=== PATIENT | female | born 1970 | race American Indian/Alaskan Native ===

== ENCOUNTER 2017-11-16 09:36 | Emergency (ER) | payer MEDICARE ==
[2017-11-16] MEDS ORDERED: MORPHINE IM ONE (10:58)
--- NOTE | 2017-11-16 11:01 | Emergency Department Report ---
Chief Complaint: Extremity Injury, Upper Stated Complaint: RIGHT LEG/RIGHT SHOULDER INJURY Time Seen by Provider: 11/16/17 10:56 - HPI History of Present Illness: 49-year-old female presents to the emergency department via EMS from home with complaint of a headache, neck pain, left shoulder pain after she fell down 5 stairs on , 4 days ago. She says that her leg gave out secondary to her sciatica and she took a tumble. She is unsure whether she had any loss of consciousness per family helps get her up into bed. She had some pain medication at home that she's been using but since that ran out she says she has been having excruciating pain. She presents with elevated blood pressure as well despite not having a diagnosis of hypertension. She has a new primary care physician through Medicare but has not seen them regarding her symptoms. - ROS Review of Systems: Positive for headache, neck pain, left shoulder pain, left arm pain Negative for numbness, paresthesias, fever, vision change - Exam Vital Signs: Vital Signs 11/16/17 09:49 Temperature 99.2 F Pulse Rate 101 H Respiratory 18 Rate Blood Pressure 198/97 O2 Sat by Pulse 98 Oximetry Physical Exam: The patient is tearful. Pupils equal reactive to light bilaterally. No nystagmus. Extraocular motion intact. Tenderness to palpation to the left shoulder and upper left humerus. There is some tenderness to the midline and paraspinal neck no step-off or deformity. MSE screening note: Focused history and physical exam performed. Due to findings the following was ordered: Patient will have a CT scan of the head and cervical spine without contrast. An x-ray of the left shoulder and left humerus. She will have a CBC, CMP and CK level. ED Disposition for MSE Condition: Stable Referrals: CLAUDINE VERDIN MD [Primary Care Provider] - 3-5 Days
--- NOTE | 2017-11-16 11:52 | Cat Scan Report ---
CT HEAD WITHOUT CONTRAST INDICATION: Trauma. COMPARISON: None similar. FINDINGS: Noncontrast head CT demonstrates normal ventricles and sulci. No acute infarct, hemorrhage, mass effect or midline shift. No abnormal extra axial fluid collections. Minimal, benign bilateral basal ganglia calcifications. Normal posterior fossa with preserved basilar cisterns. Unremarkable eye globes. Small air-fluid levels seen within both maxillary sinuses, left more than right. Hypoplastic frontal sinuses, right more than left. Grossly clear remainder aerated paranasal sinuses and mastoid air cells. Slight atherosclerotic ICA calcifications. Intact calvarium. Normal scalp. Edentulous area. Cervical spondylosis. CONCLUSION: No acute intracranial CT abnormality with bilateral maxillary acute sinusitis, as described. Please correlate. Thank you for the opportunity to participate in this patient's care.
--- NOTE | 2017-11-16 12:05 | Cat Scan Report ---
CT CERVICAL SPINE WITHOUT CONTRAST INDICATION: Trauma. COMPARISON: None similar. FINDINGS: Noncontrast axial, sagittal and coronal CT reconstructions through the cervical spine demonstrate straightening/slight reversal of usual lordosis with the apex at C5-C6 with moderate to severe disc narrowing and mild spurring at this level as well. Mild to moderate C4-C5 disc narrowing also suspected. Preserved vertebral body stature. Normal dens and intact craniocervical articulation with preserved prevertebral soft tissues and the airway. Normal imaged intracranial appearance. Clear mastoid air cells. Intact anterior and posterior arches of C1. Normal size thyroid with a 0.5 cm hypodensity on the right, axial image 53, series 2. Clear visualized lung apices. On the obtained axial images: C2-C3 and C3-C4 are unremarkable. C4-C5 suggests slight diffuse disc bulge and right uncovertebral spurring. C5 vertebral body demonstrates a nondisplaced fracture through the left lamina and pedicle as on axial image 79, series 3, also involving the facet joint as on sagittal image 56. C5-C6 demonstrates left more than right uncovertebral spurring and mild disc bulge/osteophyte complex as on axial image 42, series 2, amongst others. C6-C7 and C7-T1 suggests no significant neural foraminal stenosis, though assessment of the spinal canal itself compromised due to artifact from shoulder soft tissues. CONCLUSION: Acute fracture involving C5 left lamina, pedicle and facet with cervical spondylosis also greatest at C5-C6, as detailed above. I phoned the above results to Dr. Melendez in the ER, 11:55 AM, 11/16/2017. Thank you for the opportunity to participate in this patient's care.
--- NOTE | 2017-11-16 12:07 | Emergency Department Report ---
HPI - General Chief Complaint: Extremity Injury, Upper Time Seen by Provider: 11/16/17 10:56 - HPI HPI: 47-year-old female presents to the emergency department via EMS from home with complaint of a headache, neck pain, left shoulder pain after she fell down 5 stairs on , 4 days ago. She says that her leg gave out secondary to her sciatica and she took a tumble. She is unsure whether she had any loss of consciousness per family helps get her up into bed. She had some pain medication at home and she says that has run out and therefore she is having increased pain that she says is a 10 out of 10 in intensity. She presents with elevated blood pressure as well despite not having a diagnosis of hypertension. She has a new primary care physician through Medicare but has not seen them regarding her symptoms. She has a history of a L3 to 5 microdiscectomy done in 2012, sciatica, depression and anxiety. ED Past Medical Hx - Past Medical History Previous Medical History?: Yes Hx Psychiatric Treatment: Yes (depression; anxiety) Additional medical history: sciatica - Surgical History Additional Surgical History: L3-5 surgery - Social History Smoking Status: Never Smoker Substance Use Type: None ED Review of Systems ROS: Stated complaint: RIGHT LEG/RIGHT SHOULDER INJURY Other details as noted in HPI Comment: All other systems reviewed and negative Constitutional: denies: chills, fever Eyes: denies: eye pain, eye discharge, vision change ENT: denies: ear pain, throat pain Respiratory: denies: cough, shortness of breath, wheezing Cardiovascular: denies: chest pain, palpitations Gastrointestinal: denies: abdominal pain, nausea, diarrhea Genitourinary: denies: urgency, dysuria, discharge Musculoskeletal: arthralgia, myalgia Skin: denies: rash, lesions Neurological: headache. denies: numbness Physical Exam - Physical Exam Vital Signs: Vital Signs 11/16/17 09:49 Temperature 99.2 F Pulse Rate 101 H Respiratory 18 Rate Blood Pressure 198/97 O2 Sat by Pulse 98 Oximetry Physical Exam: GENERAL: The patient is well-developed well-nourished. HENT: Normocephalic. Atraumatic. Patient has moist mucous membranes. EYES: Extraocular motions are intact. Pupils equal reactive to light bilaterally. NECK: Supple. Trachea is midline. Patient has lower midline and paraspinal tenderness to palpation. No step-off or deformity. CHEST/LUNGS: Clear to auscultation. There is no respiratory distress noted. HEART/CARDIOVASCULAR: Regular. There is no tachycardia. There is no murmur. ABDOMEN: Abdomen is soft, nontender. Patient has normal bowel sounds. There is no abdominal distention. SKIN: Skin is warm and dry. NEURO: The patient is awake, alert, and oriented. The patient is cooperative. The patient has no focal neurologic deficits. The patient has normal speech and gait. Cranial nerves II through XII grossly intact. MUSCULOSKELETAL: There is tenderness to palpation along the left shoulder and proximal humerus but no obvious deformity. There is some decreased range of motion of the left upper extremities secondary to pain. ED Course Vital Signs 11/16/17 09:49 Temperature 99.2 F Pulse Rate 101 H Respiratory 18 Rate Blood Pressure 198/97 O2 Sat by Pulse 98 Oximetry - Consultations Consultation #1: In regards to trauma facilities, the patient made a request for [facility] as she says it would be easier for her family to get to. I spoke to the trauma attending, Dr. Cam, who graciously accepted the patient as an ER to ER transfer. 11/16/17 12:29 Critical Care Time: No Critical care attestation.: If time is entered above; I have spent that time in minutes in the direct care of this critically ill patient, excluding procedure time. ED Disposition Clinical Impression: C5 vertebral fracture Qualifiers: Encounter type: initial encounter Fracture type: closed Fracture morphology: unspecified fracture morphology Fracture alignment: nondisplaced Qualified Code( s): S12.401A - Unspecified nondisplaced fracture of fifth cervical vertebra, initial encounter for closed fracture Left shoulder pain Qualifiers: Chronicity: acute Qualified Code(s): M25.512 - Pain in left shoulder Fall down stairs Qualifiers: Encounter type: initial encounter Qualified Code(s): W10.8XXA - Fall (on) (from ) other stairs and steps, initial encounter Hypertension Qualifiers: Hypertension type: essential hypertension Qualified Code(s): I10 - Essential ( primary) hypertension Disposition: DC/TX-70 ANOTHER TYPE HLTHCARE Is pt being admited?: No Condition: Fair Instructions: Hypertension (ED) Referrals: CLAUDINE VERDIN MD [Primary Care Provider] - 3-5 Days Time of Disposition: 12:31
[2017-11-16] MEDS ORDERED: PERCOCET 5/325 ONE (12:23)
[2017-11-16 12:38] VITALS: BP 206/106
--- NOTE | 2017-11-16 12:47 | XRay Report ---
LEFT SHOULDER RADIOGRAPHS INDICATION: Trauma. COMPARISON: None similar at this institution. FINDINGS: Frontal and Y views of the left shoulder, 3 projections demonstrate normal humeral head contour, well positioned against the glenoid. Normal acromioclavicular joint. Preserved scapular contour. Normal visualized soft tissues, left ribs and lung. Mild thoracic spondylosis. CONCLUSION: No acute left shoulder radiographic abnormality, as described. Thank you for the opportunity to participate in this patient's care.
--- NOTE | 2017-11-16 12:48 | XRay Report ---
LEFT HUMERUS RADIOGRAPHS INDICATION: Trauma. COMPARISON: None similar. FINDINGS: AP and lateral left humerus radiographs demonstrate intact bones, included joints and soft tissues. CONCLUSION: Normal left humerus radiographs. Thank you for the opportunity to participate in this patient's care.
[2017-11-16] MEDS ORDERED: ATIVAN ONE (13:20)
[2017-11-16] MEDS ORDERED: ATIVAN PO ONE (13:24)
[2017-11-16 13:25] LABS: Alanine Aminotransferase 24 units/L (7-56); Albumin 3.4 g/dL (3.9-5); BUN/Creatinine Ratio 8; Blood Urea Nitrogen 5 mg/dL (7-17); Hemolysis Index 23
== END 2017-11-16 13:35 | disposition other institution (70) ==
LOC: ED 09:36 → EDBD 09:36 → ED 13:35
DX: S12.401A Unspecified nondisplaced fracture of fifth cervical vertebra, initial encounter for closed fracture (principal); M25.512 Pain in left shoulder; I10 Essential (primary) hypertension; W10.9XXA Fall (on) (from) unspecified stairs and steps, initial encounter; Y93.89 Activity, other specified; Y92.89 Other specified places as the place of occurrence of the external cause; Y99.8 Other external cause status
CPT/HCPCS: 36415; 70450; 72125; 73030; 73060; 80053; 82550; 96372; 99285; J2270

== ENCOUNTER 2019-09-10 18:31 | Emergency (ER) | payer BC, MEDICARE ==
[2019-09-10 18:40] VITALS: BP 147/100
[2019-09-10] MEDS ORDERED: NITROGLYCERIN 0.4 MG TAB SUBL SL PRN (19:30)
--- NOTE | 2019-09-10 19:45 | XRay Report ---
CHEST 1 VIEW INDICATION / CLINICAL INFORMATION: MAIN: Chest Pain started today. COMPARISON: 11/26/2017 FINDINGS: SUPPORT DEVICES: None. HEART / MEDIASTINUM: No significant abnormality. LUNGS / PLEURA: No significant pulmonary or pleural abnormality. No pneumothorax. ADDITIONAL FINDINGS: No significant additional findings. IMPRESSION: 1. No significant change Signer Name: Niles Johnson MD Signed: 09/10/2019 7:40 PM Workstation Name: [id number]
[2019-09-10 19:52] LABS: Hematocrit 33.5 % (30.3-42.9); Hemoglobin 10.2 gm/dl (10.1-14.3); Mean Corpuscular HGB Conc 31 % (30-34); Platelet Count 345 K/mm3 (140-440); Red Blood Count 4.86 M/mm3 (3.65-5.03)
[2019-09-10 19:54] LABS: Mean Corpuscular Volume 69 fl (79-97); Red Cell Distribution Width 30.7 % (13.2-15.2)
[2019-09-10 20:04] LABS: INR 0.92 (0.87-1.13)
[2019-09-10 20:05] LABS: Partial Thromboplastin Time 26.2 Sec. (24.2-36.6)
[2019-09-10 20:13] LABS: Alanine Aminotransferase 32 units/L (7-56); BUN/Creatinine Ratio 14; Blood Urea Nitrogen 10 mg/dL (7-17); Calcium 9.3 mg/dL (8.4-10.2); Hemolysis Index 5
[2019-09-10 20:43] LABS: Anisocytosis 3+; Basophils % (Manual) 0 % (0.0-1.8); Total Cells Counted 100
[2019-09-10 20:44] LABS: Dimorphic RBC Yes; Hypochromasia 2+; Schistocytes 1+
[2019-09-10] MEDS ORDERED: CYCLOBENZAPRINE 10 MG TAB PO ONE (21:53)
[2019-09-10] MEDS ORDERED: ACETAMINOPHEN 325 MG TAB PO ONE (21:53)
[2019-09-10] MEDS ORDERED: predniSONE 20 MG TAB PO ONE (21:53)
--- NOTE | 2019-09-10 22:29 | Emergency Department Report ---
ED Chest Pain HPI - General Chief Complaint: Chest Pain Stated Complaint: CHEST PAIN Source: patient Mode of arrival: Wheelchair Limitations: No Limitations - History of Present Illness Initial Comments: Patient is a 49-year-old female with a history of chronic pain syndrome and on various narcotic pain medications at home, also history of anxiety and depression who presented to the ED with complaint of acute onset diffuse chest wall pain that radiates to the neck and bilateral shoulders and arms for the last 8 hours. Patient stated that she took Percocet 10 mg - 325 mg and gabapentin 600 mg prior to arrival in the ED. Patient states that the pain in her chest has not been controlled. Patient denies dizziness, syncope, nausea, vomiting, abdominal pain, headache, fever, chills, cough, sore throat, change in vision, palpitations, diaphoresis, traumatic injury, heavy lifting, fall or numbness and tingling or weakness of upper and lower extremities bilaterally. MD Complaint: chest pain, other (Dyspnea; neck and bilateral shoulder pain) -: Sudden, hour(s) (8) Onset: during rest, during exertion, awoke with symptoms Pain Location: left chest, right chest Pain Radiation: RUE, LUE, neck Severity: severe Severity scale (0 -10): 7 Quality: aching, sharp Consistency: constant Improves With: nothing Worsens With: exertion, palpation, movement Context: other (chronic back pain, on narcotic pain medications from Pain Clinic) re: dyspnea. denies: nausea, vomting, diaphoresis, sense of impending doom Other Symptoms: denies: cough, fever, syncope, rash, acid taste in mouth, leg swelling, palpitations, burping Treatments Prior to Arrival: other (Percocet 10-325 mg and Gabapentin 600mg) Aspirin use within the Past 7 Days: (0) No - Related Data On Oral Contraceptives: No Allergies Allergy/AdvReac Type Severity Reaction Status Date / Time ketorolac [From Toradol] AdvReac Itching Verified 04/09/18 09:41 tramadol AdvReac Itching Verified 04/18/18 11:27 Heart Score - HEART Score History: Slightly suspicious EKG: Normal Age: 45-65 Risk factors: 1-2 risk factors Troponin: < normal limit HEART Score: 2 - Critical Actions Critical Actions: 0-3 pts:0.9-1.7%risk of adverse cardiac event.Candidate for discharge ED Review of Systems ROS: Stated complaint: CHEST PAIN Other details as noted in HPI Constitutional: denies: chills, fever Eyes: denies: eye pain, eye discharge, vision change ENT: denies: ear pain, throat pain, dental pain, hearing loss, congestion Respiratory: shortness of breath. denies: cough, orthopnea, SOB with exertion, wheezing Cardiovascular: chest pain (diffuse). denies: palpitations, edema, syncope, paroxysmal nocturnal dyspnea Endocrine: no symptoms reported Gastrointestinal: denies: abdominal pain, nausea, vomiting, diarrhea, constipation, hematemesis, hematochezia Genitourinary: denies: urgency, dysuria, discharge Musculoskeletal: back pain, arthralgia (bilateral shoulder and lower back pain). denies: joint swelling Skin: denies: rash, lesions Neurological: denies: headache, weakness, numbness, paresthesias, confusion, vertigo Psychiatric: anxiety. denies: depression, auditory hallucinations, visual hallucinations, homicidal thoughts, suicidal thoughts Hematological/Lymphatic: denies: easy bleeding, easy bruising ED Past Medical Hx - Past Medical History Previous Medical History?: Yes Hx Psychiatric Treatment: Yes (depression; anxiety) Additional medical history: sciatica, anxiety, depression - Surgical History Past Surgical History?: Yes Hx Cholecystectomy: Yes Additional Surgical History: L3-5 surgery, left wrist surgery. Hernia surgery - Social History Smoking Status: Never Smoker Substance Use Type: None ED Physical Exam - General Limitations: No Limitations General appearance: alert, in no apparent distress - Head Head exam: Present: atraumatic, normocephalic, normal inspection - Eye Eye exam: Present: normal appearance, PERRL, EOMI Pupils: Present: normal accommodation - ENT ENT exam: Present: normal exam, normal orophraynx, mucous membranes moist, TM's normal bilaterally, normal external ear exam - Neck Neck exam: Present: normal inspection, tenderness (Palpable cervical paraspinal musculoskeletal tenderness), full ROM - Respiratory Respiratory exam: Present: normal lung sounds bilaterally, chest wall tenderness (Reproducible palpable diffuse chest wall tenderness). Absent: respiratory distress, wheezes, rales, rhonchi, accessory muscle use, decreased breath sounds, prolonged expiratory - Cardiovascular Cardiovascular Exam: Present: regular rate, normal rhythm, normal heart sounds. Absent: systolic murmur, diastolic murmur, rubs, gallop - GI/Abdominal GI/Abdominal exam: Present: soft, normal bowel sounds. Absent: tenderness, guarding, rebound, hyperactive bowel sounds - Extremities Exam Extremities exam: Present: normal inspection, full ROM, tenderness (Palpable bilateral shoulder tenderness), normal capillary refill - Back Exam Back exam: Present: normal inspection, full ROM, tenderness (Palpable lumbosacral paraspinal musculoskeletal tenderness), muscle spasm, paraspinal tenderness. Absent: CVA tenderness (L) - Neurological Exam Neurological exam: Present: alert, oriented X3, CN II-XII intact, normal gait, reflexes normal - Psychiatric Psychiatric exam: Present: normal affect, normal mood, anxious - Skin Skin exam: Present: warm, dry, intact, normal color. Absent: rash ED Course Vital Signs 09/10/19 18:36 Temperature 98.8 F Pulse Rate 100 H Respiratory 16 Rate Blood Pressure 147/100 O2 Sat by Pulse 99 Oximetry NADYA score - Nadya Score Age > 65: (0) No Aspirin use within the Past 7 Days: (0) No 3 or more CAD Risk Factors: (0) No 2 or more Angina events in past 24 hrs: (0) No Known CAD with more than 50% Stenosis: (0) No Elevated Cardiac Markers: (0) No ST Deviation Greater than 0.5mm: (0) No NADYA Score: 0 ED Medical Decision Making - Lab Data Result diagrams: 09/10/19 19:32 09/10/19 19:32 - EKG Data EKG shows normal: sinus rhythm Rate: normal - EKG Data Interpretation: normal EKG 09/10/19 22:31 EKG shows normal sinus rhythm with ventricular rate of 74 beats a minute and no ST or T wave abnormalities. - Radiology Data Radiology results: report reviewed, image reviewed Chest x-ray shows no acute cardiopulmonary abnormalities or pneumonitis - Medical Decision Making This is a 49-year-old female with a history of chronic pain syndrome and on various narcotic pain medications at home, also history of anxiety and depression who presented to the ED with complaint of acute onset diffuse chest wall pain that radiates to the neck and bilateral shoulders and arms for the last 8 hours. Patient stated that she took Percocet 10 mg - 325 mg and gabapentin 600 mg prior to arrival in the ED. Patient states that the pain in her chest has not been controlled. In the ED, patient is alert and oriented x3 and is not in any distress but appears to be in pain and very anxious. EKG shows normal sinus rhythm with ventricular rate of [address] or T wave abnormalities. Chest x-ray shows no acute cardiopulmonary abnormalities or pneumonitis. Lab test results were reviewed and are all nonactionable including the initial and repeat troponin levels. Patient was treated for pain in the ED but demanded narcotic medications for pain stating "These are the only medic ations that help my pain" yet she took same medications prior to arrival in the ED but still complained of pain. Patient however declined to take the pain medications and muscle relaxants offered in the ED stating that she wants narcotic medications. Patient however has Percocet 10 mg-325 mg and gabapentin at home which she takes and are prescribed at the pain clinic. Patient was discharged home and advised to take her regular pain medications since the current test results are remarkable for coronary artery disease. Based on the physical exam findings, EKG, chest x-ray and lab test results, the patient symptoms is musculoskeletal characterized by anxiety. Patient was advised to follow-up with her primary care physician in 2 to 3 days for reevaluation and also a pain clinic as previously scheduled. Patient was however advised return to the ED immediately if symptoms get worse. - Differential Diagnosis CAD; Muscle strain; Chronic pain; Costochondritis; anxiety Critical care attestation.: If time is entered above; I have spent that time in minutes in the direct care of this critically ill patient, excluding procedure time. ED Disposition Clinical Impression: Acute nonspecific chest pain with low risk of coronary artery disease, Acute costochondritis, Chronic pain syndrome, Anxiety as acute reaction to exceptional stress Disposition: DC-01 TO HOME OR SELFCARE Is pt being admited?: No Does the pt Need Aspirin: No Condition: Stable Instructions: Chest Pain (ED), Costochondritis (ED), Anxiety (ED) Additional Instructions: All lab test results, imaging test results and EKG are unremarkable. Your pain is mainly musculoskeletal and chronic. Therefore take pain medications that you are ready have at home and follow-up with your pain clinic since chronic pain is not treated in the ED. Follow-up with your primary care physician in 3 to 5 days for reevaluation. Referrals: [facility] [Provider Group] - 3-5 Days Time of Disposition: 22:41 Print Language: SETSWANA
== END 2019-09-10 22:45 | disposition home or self-care (01) ==
LOC: ED 18:31
DX: M94.0 Chondrocostal junction syndrome [Tietze] (principal); G89.4 Chronic pain syndrome; F43.8 Other reactions to severe stress; F32.89 Other specified depressive episodes; F41.1 Generalized anxiety disorder; F43.0 Acute stress reaction; Z90.49 Acquired absence of other specified parts of digestive tract; Z79.899 Other long term (current) drug therapy; Z88.6 Allergy status to analgesic agent
CPT/HCPCS: 36415; 71045; 80053; 84484; 85007; 85025; 85610; 85730; 93005; 93010; J7512

== ENCOUNTER 2019-12-09 05:22 | Emergency (ER) | payer BC, MEDICARE ==
[2019-12-09] MEDS ORDERED: oxyCODONE /ACETAMINOPHEN 5-325MG TAB PO ONE (06:58)
[2019-12-09] MEDS ORDERED: GABAPENTIN 400 MG CAP PO ONE ×2 (06:59→19:10)
[2019-12-09] MEDS ORDERED: LORazepam 1 MG TAB PO ONE ×2 (07:02→21:04)
--- NOTE | 2019-12-09 07:04 | Emergency Department Report ---
<NEELAM KOCH - Last Filed: 12/09/19 14:57> ED Psych HPI - General Chief Complaint: Medical Clearance Stated Complaint: MEDICAL CLEARANCE Time Seen by Provider: 12/09/19 06:50 Source: patient, EMS Mode of arrival: Ambulatory Limitations: No Limitations - History of Present Illness Initial Comments: 49-year-old female with a past medical history of anxiety, depression, chronic pain syndrome, and sciatica presents to the hospital complaining of pain all over and suicidal ideation. Patient states that her current Percocet 10 mg 4 times a day and gabapentin 800 mg 4 times a day are not controlling her pain. She is enrolled in pain management. She complains of exacerbation of her chronic pain. She complains of feeling suicidal but does not endorse a plan today. Last year she tried to kill herself by tying a cord around her neck. She has been off her psychiatric medications for the past 2 months. She denies a history of primary hypertension and states that her BP is elevated when she is in pain - Related Data Allergies Allergy/AdvReac Type Severity Reaction Status Date / Time ketorolac [From Toradol] AdvReac Itching Verified 04/09/18 09:41 tramadol AdvReac Itching Verified 04/18/18 11:27 ED Review of Systems Comment: All other systems reviewed and negative ED Past Medical Hx - Past Medical History Previous Medical History?: Yes Hx Psychiatric Treatment: Yes (depression; anxiety) Additional medical history: sciatica, anxiety, depression - Surgical History Hx Cholecystectomy: Yes Additional Surgical History: L3-5 surgery, left wrist surgery. Hernia surgery - Social History Smoking Status: Never Smoker Substance Use Type: None ED Physical Exam - General Limitations: No Limitations - Other Other exam information: General: No acute distress Head: Atraumatic Eyes: normal appearance ENT: Moist mucous membranes Neck: Normal appearance, no midline tenderness Chest: Clear to auscultation bilaterally CV: Regular rate and rhythm Abdomen: Soft, normal bowel sounds, nontender, nondistended, no rebound or guarding Back: Normal inspection Extremity: Normal inspection, full range of motion Neuro: Alert O x 3, no facial asymmetry, speech clear, no gross motor sensory deficit Psych: Patient rocking, complaining of feeling anxious, complaining of being in pain, complaining of not being able to breathe with the mask on her face Skin: No rash ED Medical Decision Making - Lab Data Result diagrams: 12/09/19 07:30 12/09/19 07:30 - Medical Decision Making pain improved with ED Disposition Clinical Impression: Suicidal ideation, Chronic pain Disposition: DC/TX-65 PSY HOSP/PSY UNIT Is pt being admited?: No Condition: Stable Referrals: PRIMARY CAREMD [Primary Care Provider] - 3-5 Days [facility] [Provider Group] - 3-5 Days Time of Disposition: 14:32 <IBMAL BAXTER - Last Filed: 12/09/19 23:32> ED Review of Systems ROS: Stated complaint: MEDICAL CLEARANCE Other details as noted in HPI ED Course Vital Signs 12/09/19 12/09/19 12/09/19 05:30 07:35 08:00 Temperature 98.2 F Pulse Rate 75 Respiratory 20 18 18 Rate Blood Pressure 179/127 Blood Pressure [Left] O2 Sat by Pulse 99 98 Oximetry 12/09/19 12/09/19 12/09/19 08:24 08:35 11:59 Temperature 98.7 F Pulse Rate 75 92 H Respiratory 18 18 18 Rate Blood Pressure Blood Pressure 149/101 160/100 [Left] O2 Sat by Pulse 96 Oximetry 12/09/19 12/09/19 12/09/19 13:11 13:18 14:18 Temperature Pulse Rate 88 Respiratory 18 18 Rate Blood Pressure 160/100 Blood Pressure [Left] O2 Sat by Pulse Oximetry 12/09/19 12/09/19 12/09/19 14:54 19:12 20:17 Temperature 98.9 F Pulse Rate 78 60 Respiratory 18 18 16 Rate Blood Pressure Blood Pressure 124/82 145/89 [Left] O2 Sat by Pulse 100 98 Oximetry ED Medical Decision Making - Lab Data Result diagrams: 12/09/19 07:30 12/09/19 07:30 - Radiology Data Radiology results: image reviewed interpreted by me: Abdominal x-ray shows nonspecific nonobstructive bowel gas - Medical Decision Making This patient was seen by my colleague earlier today secondary to depression, suicidal ideations and generalized pain. She was made a 1013 and has been accepted for admission. Patient notified the nurse, who in turn notified me, regarding the complaint of some recent rectal bleeding. She says that there was a combination of dark tarry stool and some bright red blood. However, when I went to examine the patient, she refuses a rectal examination for stool occult/guaiac testing. Her hemoglobin is at about 10.5 and she does not require any transfusion. There is no hypotension or signs of hypovolemia. An abdominal x-ray was done that shows nonspecific nonobstructive bowel gas. Shortly afterwards the patient is seen resting comfortably in no acute distress. The patient is still considered medically cleared for psychiatric placement but will be given a an outpatient referral for gastroenterology to follow-up when she is done with her psychiatric care. She will be return to the emergency department with any worsening of her symptoms or with any acute distress. Critical care attestation.: If time is entered above; I have spent that time in minutes in the direct care of this critically ill patient, excluding procedure time. ED Disposition Is pt being admited?: No
[2019-12-09 07:31] LABS: Bilirubin,Urine NEG (Negative); Blood,Urine NEG (Negative); Color,Urine Yellow (Yellow); Mucus,Urine FEW /HPF; Protein,Urine <15 mg/dL mg/dL (Negative); Urobilinogen,Urine < 2.0 mg/dL (<2.0); WBC,Urine < 1.0 /HPF (0.0-6.0)
[2019-12-09 08:05] LABS: Hemoglobin 10.3 gm/dl (10.1-14.3); Mean Corpuscular HGB Conc 31 % (30-34); Mean Corpuscular Volume 72 fl (79-97); Platelet Count 362 K/mm3 (140-440); Red Cell Distribution Width 17.1 % (13.2-15.2)
[2019-12-09 08:26] LABS: BUN/Creatinine Ratio 14; Blood Urea Nitrogen 10 mg/dL (7-17); Calcium 8.6 mg/dL (8.4-10.2); Hemolysis Index 4
[2019-12-09] MEDS ORDERED: cloNIDine 0.1 MG TAB PO ONE (12:02)
[2019-12-09 12:58] LABS: Anisocytosis 1+; Hypochromasia 1+; Platelet Estimate Consistent w Auto; Target Cells Rare; Tear Drop Cells Rare; Total Cells Counted 100
[2019-12-09] MEDS: oxyCODONE /ACETAMINOPHEN 5-325MG TAB PO PRN ×2 (13:18→19:12)
[2019-12-09 16:29] LABS: Amphetamine Screen,Urine Negative; Benzodiazepines Screen,Urine Negative; Cannabinoid Screen,Urine Negative; Cocaine Screen,Urine Negative; Methadone Screen,Urine Negative; Opiate Screen,Urine Negative
[2019-12-09] MEDS ORDERED: GABAPENTIN 400 MG CAP PO SCH (20:00)
[2019-12-09 20:18] VITALS: BP 145/89
--- NOTE | 2019-12-09 21:39 | XRay Report ---
ABDOMEN, 2 VIEW INDICATION / CLINICAL INFORMATION: MAIN. COMPARISON: None available. FINDINGS: The bowel gas pattern is normal. No suggestion of obstruction or abnormal bowel dilatation. No visibl e free air. Surgical clips are present in the right upper quadrant indicative of prior cholecystectomy. Sutures a re seen in the upper abdomen most likely related to prior gastric bypass surgery. Tubal ligation clips are evident within the pelvis. IMPRESSION: No acute finding within the abdomen. Signer Name: Martha De Jesus MD Signed: 12/09/2019 9:35 PM Workstation Name: [id number]
== END 2019-12-09 22:40 ==
LOC: EEVIPCON 05:22 → ED 05:22
DX: R45.851 Suicidal ideations (principal); G89.29 Other chronic pain; R14.0 Abdominal distension (gaseous); F41.9 Anxiety disorder, unspecified; Z90.49 Acquired absence of other specified parts of digestive tract; Z98.890 Other specified postprocedural states; Z88.8 Allergy status to other drugs, medicaments and biological substances
CPT/HCPCS: 36415; 74019; 80048; 80307; 80320; 81001; 85007; 85025; G0480

== ENCOUNTER 2020-01-29 07:12 | Emergency (ER) | payer BC, MEDICARE ==
[2020-01-29] MEDS ORDERED: predniSONE 20 MG TAB PO ONE (08:14)
[2020-01-29] MEDS ORDERED: KETOROLAC 60 MG/2 ML INJ IM ONE (08:14)
[2020-01-29] MEDS ORDERED: MORPHINE 4 MG/1 ML INJ IM ONE (08:28)
--- NOTE | 2020-01-29 08:39 | Emergency Department Report ---
ED Back Pain/Injury HPI - General Chief Complaint: Back Pain/Injury Stated Complaint: BACK PAIN Time Seen by Provider: 01/29/20 07:53 Source: patient, EMS Limitations: Physical Limitation - History of Present Illness Initial Comments: This is a 49-year-old female nontoxic, well nourished in appearance, no acute signs of distress presents to the ED with c/o of acute on chronic lower back pain. Patient stated that the past 2 days she had a ground level trip and fall. 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 Patient states has history of sciatica nerve pain which is similar symptoms as today. Patient states that pain radiates through to his left lower extremity. Patient denies any other injuries or trauma. Denies any bladder or bowel instability. Patient denies any urinary symptoms. Denies any fever, chills, nausea, vomiting, headache, stiff neck, chest pain or shortness of breath. Patient denies any numbness or tingling. Stated allergies to Toradol and tramadol. Patient has history of lumbar surgery. MD Complaint: back pain -: days(s) Similar Symptoms Previously: Yes Place: home Radiation: none Severity: mild Severity scale (0 -10): 8 Quality: aching Consistency: intermittent Improves With: immobilization, sitting upright Worsens With: movement, walking Context: fall Associated Symptoms: denies other symptoms. denies: confusion, weakness, chest pain, numbness, difficulty walking, cough, difficulty urinating, diaphoresis, incontinence, fever/chills, constipation, headaches, abdominal pain, loss of appetite, malaise, nausea/vomiting, rash, seizure, shortness of breath, syncope - Related Data Home Medications Medication Instructions Recorded Confirmed Last Taken Gabapentin [Neurontin] 800 mg PO 4XD 12/09/19 12/09/19 12/09/19 600 LORazepam [Ativan] 2 mg PO Q8HR PRN 12/09/19 12/09/19 12/09/19 1 mg Oxycodone HCl/Acetaminophen 10 mg PO Q6HR PRN 12/09/19 12/09/19 12/09/19 [Percocet 10/325 mg] 10 Previous Rx's Medication Instructions Recorded Last Taken Type Cyclobenzaprine [Flexeril] 10 mg PO QHS PRN #10 tablet 01/29/20 Unknown Rx Allergies Allergy/AdvReac Type Severity Reaction Status Date / Time ketorolac [From Toradol] AdvReac Itching Verified 04/09/18 09:41 tramadol AdvReac Itching Verified 04/18/18 11:27 ED Review of Systems ROS: Stated complaint: BACK PAIN Other details as noted in HPI Constitutional: denies: chills, fever Eyes: denies: eye pain, eye discharge, vision change ENT: denies: ear pain, throat pain Respiratory: denies: cough, shortness of breath, wheezing Cardiovascular: denies: chest pain, palpitations Endocrine: no symptoms reported Gastrointestinal: denies: abdominal pain, nausea, diarrhea Genitourinary: denies: urgency, dysuria, discharge Musculoskeletal: back pain. denies: joint swelling, arthralgia Skin: denies: rash, lesions Neurological: denies: headache, weakness, paresthesias Psychiatric: denies: anxiety, depression Hematological/Lymphatic: denies: easy bleeding, easy bruising ED Past Medical Hx - Past Medical History Previous Medical History?: Yes Hx Psychiatric Treatment: Yes (depression; anxiety) Additional medical history: sciatica, anxiety, depression - Surgical History Past Surgical History?: Yes Hx Cholecystectomy: Yes Additional Surgical History: L3-5 surgery, left wrist surgery. Hernia surgery - Social History Smoking Status: Never Smoker Substance Use Type: Prescribed - Medications Home Medications: Home Medications Medication Instructions Recorded Confirmed Last Taken Type Gabapentin [Neurontin] 800 mg PO 4XD 12/09/19 12/09/19 12/09/19 History 600 LORazepam [Ativan] 2 mg PO Q8HR PRN 12/09/19 12/09/19 12/09/19 History 1 mg Oxycodone HCl/Acetaminophen 10 mg PO Q6HR PRN 12/09/19 12/09/19 12/09/19 History [Percocet 10/325 mg] 10 Cyclobenzaprine [Flexeril] 10 mg PO QHS PRN #10 tablet 01/29/20 Unknown Rx ED Physical Exam - General Limitations: Physical Limitation General appearance: alert, in no apparent distress - Head Head exam: Present: atraumatic, normocephalic - Eye Eye exam: Present: normal appearance - Neck Neck exam: Present: normal inspection, full ROM. Absent: tenderness, meningismus, lymphadenopathy - Respiratory Respiratory exam: Present: normal lung sounds bilaterally. Absent: respiratory distress, wheezes, rales, rhonchi, stridor, chest wall tenderness, accessory muscle use, decreased breath sounds, prolonged expiratory - Cardiovascular Cardiovascular Exam: Present: regular rate, normal rhythm, normal heart sounds. Absent: bradycardia, tachycardia, irregular rhythm, systolic murmur, diastolic murmur, rubs, gallop - Extremities Exam Extremities exam: Present: normal inspection, full ROM, normal capillary refill. Absent: tenderness - Back Exam Back exam: Present: normal inspection, full ROM, paraspinal tenderness (lumbar paraspinal). Absent: tenderness, CVA tenderness (R), CVA tenderness (L), muscle spasm, vertebral tenderness, rash noted - Expanded Back Exam Expanded Back exam: Absent: saddle anesthesia Back exam: Negative Straight Leg Raising: Left, Right - Neurological Exam Neurological exam: Present: alert, oriented X3, normal gait - Psychiatric Psychiatric exam: Present: normal affect, normal mood - Skin Skin exam: Present: warm, dry, intact, normal color. Absent: rash ED Course Vital Signs 01/29/20 07:28 Temperature 97.8 F Pulse Rate 85 Respiratory 18 Rate Blood Pressure 142/99 O2 Sat by Pulse 98 Oximetry Vital Signs 01/29/20 07:28 Temperature 97.8 F Pulse Rate 85 Respiratory 18 Rate Blood Pressure 142/99 O2 Sat by Pulse 98 Oximetry - Reevaluation(s) Reevaluation #1: 01/29/20 08:38 Patient is speaking in full sentences with no signs of distress noted. ED Medical Decision Making - Radiology Data Referring Physician: HUY ROY Patient Name: RHIANNA BOYER Date of : 1970 Sex: Female Report Date: 2020-01-29 Report Status: Finalized [facility] [address] [place] [address] X Ray Report Signed Patient: RHIANNA BOYER MR#: [id number] : 1970 Acct:[id number] Age/Sex: 49 / F ADM Date: 01/29/20 Loc: ED Attending Dr: Ordering Physician: HUY ROY NP Date of Service: 01/29/20 Procedure(s): XR spine lumbosacral 2-3V Accession Number(s): [id number] cc: HUY ROY NP Fluoro Time In Minutes: LUMBAR SPINE 3 VIEWS INDICATION / CLINICAL INFORMATION: MAIN. COMPARISON: Prior abdominal radiograph dated 12/09/2019. FINDINGS: VERTEBRAE: No acute fracture. Mild retrolisthesis at L5-S1. DISC SPACES / FACET JOINTS:Mild multilevel discogenic degenerative changes most prominent at L5-S1. Facet arthropathy is also noted at L5-S1 with narrowing of the bilateral neural foramen. PARASPINAL SOFT TISSUES:Cholecystectomy clips. Surgical clips of the pelvis. ADDITIONAL FINDINGS: None. Signer Name: Stefano Bird MD Signed: 01/29/2020 9:42 AM Workstation Name: [id number] Transcribed By: Dictated By: STEFANO BIRD Electronically Authenticated By: STEFANO BIRD Signed Date/Time: 01/29/20941 DD/ 9 TD/TT: - Medical Decision Making This is a 49-year-old female that presents with low back strain. Patient is stable was examined by me. There is no spinal tenderness. There is no cauda equina syndrome during examination. No bladder or bowel instability. Patient received Morphine IM, flexeril, and prednisone in the ED which stated that her symptoms has resolved and subsided. Patient stated that her family member will drive her home after discharge due to possible drowsiness of ED treatment. Patient is discharged with muscle relaxant. Patient was instructed not to operate any machinery while taking muscle relaxant as they cause her drowsiness. Patient was referred to Follow-up with a primary care doctor in 3-5 days or if symptoms worsen and continue return to emergency room as soon as possible. At time of discharge, the patient does not seem toxic or ill in appearance. No acute signs of distress noted. Patient agrees to discharge treatment plan of care. No further questions noted by the patient. This chart is dictated with using [employer] D[employer]ation [employer] Critical care attestation.: If time is entered above; I have spent that time in minutes in the direct care of this critically ill patient, excluding procedure time. ED Disposition Clinical Impression: Low back strain Qualifiers: Encounter type: initial encounter Qualified Code(s): S39.012A - Strain of muscle, fascia and tendon of lower back, initial encounter Degenerative joint disease (DJD) of lumbar spine Qualifiers: Spinal osteoarthritis complication: with radiculopathy Qualified Code(s): M47.26 - Other spondylosis with radiculopathy, lumbar region Disposition: DC-01 TO HOME OR SELFCARE Is pt being admited?: No Does the pt Need Aspirin: No Condition: Stable Instructions: Low Back Strain (ED) Additional Instructions: Follow-up with your primary care doctor in 3-5 days or if symptoms worsen and continue return to the ED as soon as possible. Prescriptions: Cyclobenzaprine [Flexeril] 10 mg PO QHS PRN #10 tablet PRN Reason: Muscle Spasm Referrals: PRIMARY CARE, [Primary Care Provider] - 3-5 Days ISSA BOB MD [Staff Physician] - 3-5 Days
[2020-01-29 09:08] VITALS: BP 142/99
--- NOTE | 2020-01-29 09:47 | XRay Report ---
LUMBAR SPINE 3 VIEWS INDICATION / CLINICAL INFORMATION: MAIN. COMPARISON: Prior abdominal radiograph dated 12/09/2019. FINDINGS: VERTEBRAE: No acute fracture. Mild retrolisthesis at L5-S1. DISC SPACES / FACET JOINTS:Mild multilevel discogenic degenerative changes most prominent at L5-S1. F acet arthropathy is also noted at L5-S1 with narrowing of the bilateral neural foramen. PARASPINAL SOFT TISSUES:Cholecystectomy clips. Surgical clips of the pelvis. ADDITIONAL FINDINGS: None. Signer Name: Stefano Olivera MD Signed: 01/29/2020 9:42 AM Workstation Name: [id number]
[2020-01-29] MEDS ORDERED: CYCLOBENZAPRINE 10 MG TAB PO ONE (09:58)
== END 2020-01-29 10:36 | disposition home or self-care (01) ==
LOC: ED 07:12
DX: S39.012A Strain of muscle, fascia and tendon of lower back, initial encounter (principal); M47.896 Other spondylosis, lumbar region; F32.9 Major depressive disorder, single episode, unspecified; F41.9 Anxiety disorder, unspecified; Z90.49 Acquired absence of other specified parts of digestive tract; Z98.890 Other specified postprocedural states; Z79.899 Other long term (current) drug therapy; Z88.8 Allergy status to other drugs, medicaments and biological substances; W01.0XXA Fall on same level from slipping, tripping and stumbling without subsequent striking against object, initial encounter; Y93.89 Activity, other specified; Y92.89 Other specified places as the place of occurrence of the external cause; Y99.8 Other external cause status
CPT/HCPCS: 72100; 96372; 99284; J1885; J2270; J7512